=== PATIENT | male | born 1955 | race Hispanic/Latino ===

== ENCOUNTER 2017-12-31 11:13 | Outpatient (CLI) | payer OTHER | END 2017-12-31 11:14 | disposition home or self-care (01) | LOC: BICULT 11:13 | PROVIDERS: ATTEND Urology | DX: R31.29 Other microscopic hematuria (principal); N20.0 Calculus of kidney | CPT/HCPCS: 76770 ==

== ENCOUNTER 2018-01-13 14:56 | Outpatient (CLI) | payer OTHER | END 2018-01-13 14:57 | disposition home or self-care (01) | LOC: BICCT 14:56 | PROVIDERS: ATTEND Urology | DX: N20.0 Calculus of kidney (principal); K40.20 Bilateral inguinal hernia, without obstruction or gangrene, not specified as recurrent | CPT/HCPCS: 74176 ==

== ENCOUNTER 2018-04-18 08:37 | Outpatient (CLI) | payer BC ==
[2018-04-18 09:28] LABS: Estimated GFR-MDRD - POC Greater than 90
[2018-04-18] MEDS ORDERED: Gadobenate Dimeglumine 529 MG/1 ML (20ML VIAL) ONE (13:03)
== END 2018-04-18 08:38 | disposition home or self-care (01) ==
LOC: BICMRI 08:37
PROVIDERS: ATTEND Family Medicine
DX: R41.3 Other amnesia (principal); I67.82 Cerebral ischemia; I63.9 Cerebral infarction, unspecified
CPT/HCPCS: 70553; 82565; A9579

== ENCOUNTER 2018-11-25 20:10 | Emergency (ER) | payer OTHER, BC ==
[~2018-11-25 20:10] MED LIST: ISOVUE-370 76%-LOCM 1 ML ONE
[2018-11-25 20:56] LABS: #Eosinphils 0.1 thou/uL (0.0-0.7); #Lymphocytes 0.9 thou/uL (1.20-3.40); #Monocytes 0.5 thou/uL (0.11-0.59); #Neutrophils 5.1 thou/uL (1.40-6.50); %Basophils 0.4 % (0.0-1.0); %Eosinophils 1.4 % (0.0-10.0); %Lymphocytes 13.3 % (21.0-51.0); %Monocytes 7.4 % (0.0-10.0); %Neutrophils 77.5 % (42.0-75.0); Hemoglobin 12.7 g/dL (14.0-18.0); Mean Corpuscular HGB CONC 33.5 g/dL (32.0-36.0); Mean Corpuscular Hemoglobin 30.1 pg (27.0-31.0); Mean Corpuscular Volume 89.7 fL (78.0-98.0); Mean Platelet Volume 8.8 fL (7.4-10.4); Platelet Count 142 thou/uL (130-400); RBC Distribution Width 12.2 % (11.5-14.5); Red Blood Cell (RBC) Count 4.21 mill/uL (4.70-6.10); White Blood Cell (WBC) Count 6.5 thou/uL (4.8-10.8)
[2018-11-25 21:17] LABS: ALT (SGPT) 16 U/L (8-55); AST (SGOT) 17 U/L (5-34); Albumin 4.2 g/dL (3.4-4.8); Alkaline Phosphatase 102 U/L (40-150); Anion Gap 12 mmol/L (10-20); BUN (Urea Nitrogen) 16 mg/dL (8.4-25.7); Bilirubin, Total 0.4 mg/dL (0.2-1.2); Calc. Creatinine Clearance 0 mL/min (70-130); Carbon Dioxide 26 mmol/L (23-31); Chloride 102 mmol/L (98-107); Estimated GFR-MDRD Greater than 90; Globulin 2.8 g/dL (2.4-3.5); Glucose 130 mg/dL (80-115); Lipase 49 U/L (8-78); Potassium 3.8 mmol/L (3.5-5.1); Sodium 136 mmol/L (136-145)
[2018-11-25 21:38] LABS: Bilirubin Negative (Negative); Blood, Urine Large (Negative); Clarity CLEAR (Clear); Glucose, Urine (Dipstick) Negative (Negative); Leukocyte Negative (Negative); Nitrite Negative (Negative); Protein, Urine (Dipstick) Negative (Neg-Trace); Specific Gravity, Urine 1.019 (1.002-1.036); pH, Urine 5.5 (5.0-9.0)
[2018-11-25 21:41] LABS: Bacteria/HPF None Seen HPF (None Seen); Hyaline Casts/LPF 0-3 HYALINE CAST LPF (0-3 Hyaline); Squamous Epithelial 0-3 HPF (0-3); WBC/HPF 0-3 HPF (0-3)
--- NOTE | 2018-11-25 22:18 | CT ---
CONTRAST ENHANCED CT IMAGES ABDOMEN AND PELVIS: 11/25/18 HISTORY: Abdominal pain for three days. Contrast enhanced CT images of the abdomen and pelvis demonstrates extensive coronary artery calcific ations. There is a prosthetic aortic valve seen. The lung bases are unremarkable. No evidence of free intraperitoneal air seen. The liver and spleen are unremarkable. The gallbladder and pancreas are unremarkable. The adrenal gla nds and kidneys are unremarkable. No evidence of periaortic lymphadenopathy seen. No dilated loops of small bowel seen. A normal appendix is seen. No significant colonic obstruction seen. Evaluation of the gastrointestinal system is suboptimal due to the fact that oral contrast was not gi kelsi. No evidence of retroperitoneal lymphadenopathy seen. Left inguinal hernia is present. Multilevel lumb ar degenerative changes seen. No other obvious osseous lesion seen. IMPRESSION: Degenerative changes seen in the spine. No acute evidence of intra-abdominal or pelvic pathology seen . POS: [facility]
== END 2018-11-25 23:12 | disposition home or self-care (01) ==
LOC: ERS 20:10
DX: R10.31 Right lower quadrant pain (principal); I10 Essential (primary) hypertension; E11.9 Type 2 diabetes mellitus without complications; E78.5 Hyperlipidemia, unspecified
CPT/HCPCS: 36415; 74177; 80053; 81003; 81015; 83690; 85025; 93005; Q9966

== ENCOUNTER 2022-02-24 10:53 | Outpatient (CLI) | payer MEDICARE | END 2022-02-24 10:54 | disposition home or self-care (01) | LOC: DTY/OP 10:53 | PROVIDERS: ATTEND Student in an Organized Health Care Education/Training Program | DX: F01.51 Vascular dementia, unspecified severity, with behavioral disturbance (principal); R63.4 Abnormal weight loss; R63.8 Other symptoms and signs concerning food and fluid intake | CPT/HCPCS: 97802 ==

== ENCOUNTER 2022-03-31 14:00 | Inpatient (IN) | payer MEDICARE ==
[2022-03-31 15:05] LABS: #Lymphocytes 0.7 thou/uL (1.20-3.40); #Monocytes 0.5 thou/uL (0.11-0.59); %Basophils 0.1 % (0.0-1.0); %Eosinophils 0.2 % (0.0-10.0); %Lymphocytes 9.7 % (21.0-51.0); %Monocytes 6.6 % (0.0-10.0); %Neutrophils 83.4 % (42.0-75.0); Hemoglobin 14.2 g/dL (14.0-18.0); Mean Corpuscular HGB CONC 33.3 g/dL (32.0-36.0); Mean Corpuscular Hemoglobin 31.1 pg (27.0-31.0); Mean Corpuscular Volume 93.6 fL (78.0-98.0); Mean Platelet Volume 9.6 fL (7.4-10.4); Platelet Count 134 thou/uL (130-400); RBC Distribution Width 12.8 % (11.5-14.5); Red Blood Cell (RBC) Count 4.55 mill/uL (4.70-6.10); White Blood Cell (WBC) Count 7.2 thou/uL (4.8-10.8)
[2022-03-31 15:11] LABS: ALT (SGPT) 22 U/L (8-55); AST (SGOT) 26 U/L (5-34); Albumin 3.9 g/dL (3.4-4.8); Alkaline Phosphatase 73 U/L (40-110); Anion Gap 15 mmol/L (10-20); BUN (Urea Nitrogen) 10 mg/dL (8.4-25.7); Bilirubin, Total 0.4 mg/dL (0.2-1.2); Calc. Creatinine Clearance 0 mL/min (70-130); Calcium 8.8 mg/dL (7.8-10.44); Carbon Dioxide 25 mmol/L (23-31); Chloride 104 mmol/L (98-107); Estimated GFR 100; Glucose 127 mg/dL (80-115); Potassium 3.9 mmol/L (3.5-5.1); Protein, Total 6.9 g/dL (5.8-8.1); Sodium 140 mmol/L (136-145)
[2022-03-31 15:42] LABS: Magnesium 1.7 mg/dL (1.6-2.6)
[2022-03-31] MEDS ORDERED: Acetaminophen 500 MG TAB ONE (17:28)
[2022-03-31] MEDS ORDERED: Ondansetron ODT 4 MG TAB PO PRN (18:16)
[2022-03-31] MEDS ORDERED: Acetaminophen 325 MG TAB PO PRN (18:16)
[2022-03-31] MEDS ORDERED: Ondansetron PF 4 MG/2 ML Vial IVP PRN (18:16)
[2022-03-31] MEDS ORDERED: Lactated Ringer's 1,000 ML IV SCH (18:30)
[2022-03-31 19:48] LABS: Thyroid Stimulating Hormone 0.5949 uIU/mL (0.35-4.94)
[2022-03-31 19:57] LABS: SARS-CoV-2 NAA Rapid Test DETECTED (NotDetected)
[2022-03-31] MEDS: Lactated Ringer's 1,000 ML IV SCH (21:01)
[2022-03-31] MEDS: Famotidine 20 MG TAB PO SCH (21:02)
[2022-03-31 21:07] VITALS: BMI 23.2
[2022-04-01] MEDS ORDERED: cefTRIAXone\\ROCEPHIN 2 GM VIAL ONE (02:12)
[2022-04-01] MEDS: Lactated Ringer's 1,000 ML IV SCH ×3 (05:41→21:44)
[2022-04-01 07:17] LABS: ALT (SGPT) 162 U/L (8-55); AST (SGOT) 328 U/L (5-34); Albumin 3.4 g/dL (3.4-4.8); Alkaline Phosphatase 94 U/L (40-110); Anion Gap 18 mmol/L (10-20); BUN (Urea Nitrogen) 16 mg/dL (8.4-25.7); Bilirubin, Total 0.5 mg/dL (0.2-1.2); Calc. Creatinine Clearance 57 mL/min (70-130); Calcium 8.2 mg/dL (7.8-10.44); Carbon Dioxide 21 mmol/L (23-31); Chloride 106 mmol/L (98-107); Estimated GFR 79; Globulin 2.5 g/dL (2.4-3.5); Glucose 122 mg/dL (80-115); Protein, Total 5.9 g/dL (5.8-8.1); Sodium 142 mmol/L (136-145)
[2022-04-01] MEDS: Atorvastatin Calcium 40 MG TAB PO SCH (08:43)
[2022-04-01] MEDS: Metoprolol Tartrate 50 MG TAB PO SCH ×2 (08:43→21:43)
[2022-04-01] MEDS: Famotidine 20 MG TAB PO SCH ×2 (08:43→21:43)
[2022-04-01] MEDS: metFORMIN 500 MG TAB PO SCH ×2 (08:43→17:34)
[2022-04-01] MEDS: Aspirin 325 mg Enteric Coated Tablet PO SCH (08:43)
[2022-04-01 08:49] LABS: Hemoglobin 13.2 g/dL (14.0-18.0); Mean Corpuscular HGB CONC 32.7 g/dL (32.0-36.0); Mean Corpuscular Hemoglobin 31.3 pg (27.0-31.0); Mean Corpuscular Volume 95.8 fL (78.0-98.0); Mean Platelet Volume 10.3 fL (7.4-10.4); Platelet Count 77 thou/uL (130-400); RBC Distribution Width 12.9 % (11.5-14.5); Red Blood Cell (RBC) Count 4.22 mill/uL (4.70-6.10); White Blood Cell (WBC) Count 12.2 thou/uL (4.8-10.8)
[2022-04-01 08:50] LABS: Band 48 % (5-11); Lymphocytes 3 % (21-51); MDiff Complete? YES; Metamyelocyte 2 % (0-0); Monocytes 1 % (0-10); Neutrophil 46 % (42-75); Platelet Morphology Comment Appears Decreased; Polychromasia SLIGHT = 2-3 cells (100X) (0-2/hpf)
[2022-04-01] MEDS ORDERED: Enoxaparin Sodium 40 MG/0.4 ML SYRINGE SC SCH (09:00)
[2022-04-01] MEDS ORDERED: Vancomycin 1 GM in Premix Bag 1 BAG IVPB SCH (09:00)
[2022-04-01] MEDS ORDERED: Dexamethasone 6 MG in Sodium Chloride 0.9% 50 ML IVPB SCH (09:03)
[2022-04-01 09:45] LABS: ALT (SGPT) 155 U/L (8-55); AST (SGOT) 282 U/L (5-34); Albumin 3.3 g/dL (3.4-4.8); Alkaline Phosphatase 93 U/L (40-110); Anion Gap 17 mmol/L (10-20); BUN (Urea Nitrogen) 16 mg/dL (8.4-25.7); Bilirubin, Total 0.5 mg/dL (0.2-1.2); Calc. Creatinine Clearance 60 mL/min (70-130); Calcium 8.2 mg/dL (7.8-10.44); Carbon Dioxide 21 mmol/L (23-31); Chloride 105 mmol/L (98-107); Estimated GFR 85; Globulin 2.6 g/dL (2.4-3.5); Glucose 109 mg/dL (80-115); Potassium 3.2 mmol/L (3.5-5.1); Protein, Total 5.9 g/dL (5.8-8.1); Sodium 140 mmol/L (136-145)
[2022-04-01] MEDS ORDERED: Dexamethasone 4 mg/ml Vial SLOW IVP SCH (10:00)
[2022-04-01 10:13] LABS: Band 36 % (5-11); Hemoglobin 13.2 g/dL (14.0-18.0); Lymphocytes 2 % (21-51); MDiff Complete? YES; Mean Corpuscular HGB CONC 32.3 g/dL (32.0-36.0); Mean Corpuscular Volume 95.9 fL (78.0-98.0); Mean Platelet Volume 10.1 fL (7.4-10.4); Metamyelocyte 9 % (0-0); Monocytes 5 % (0-10); Neutrophil 48 % (42-75); Platelet Count 75 thou/uL (130-400); Platelet Morphology Comment Appears Decreased; Polychromasia SLIGHT = 2-3 cells (100X) (0-2/hpf); RBC Distribution Width 12.8 % (11.5-14.5); Red Blood Cell (RBC) Count 4.25 mill/uL (4.70-6.10); Vacuoles SLIGHT; White Blood Cell (WBC) Count 15.8 thou/uL (4.8-10.8)
[2022-04-01] MEDS ORDERED: Potassium Chloride 20 MEQ in Premix Bag 1 BAG IVPB SCH (14:00)
[2022-04-01] MEDS ORDERED: Vancomycin HCl 750 MG in Sodium Chloride 0.9% 250 ML 250 ML IVPB SCH (15:00)
[2022-04-01 18:09] LABS: Bilirubin Negative (Negative); Blood, Urine 3+ (Negative); Clarity Turbid (Clear); Glucose, Urine (Dipstick) Normal (Negative); Ketone, Urine Negative (Negative); Leukocyte Negative Leu/uL (Negative); Nitrite Negative (Negative); Protein, Urine (Dipstick) 10 mg/dL (Neg-Trace); Specific Gravity, Urine 1.011 (1.002-1.036); Squamous Epithelial 0-3 HPF (0-3); Urobilinogen Normal mg/dL (Less than 2); WBC/HPF 0-3 HPF (0-3)
[2022-04-01 18:10] LABS: Bacteria/HPF 1+ HPF (None Seen); Urine Culture Reflex Yes Yes
[2022-04-01 18:23] LABS: Strep pneumo Urine Ag NEGATIVE (NEGATIVE)
[2022-04-01] MEDS ORDERED: Donepezil HCl 10 MG TAB PO SCH (21:00)
[2022-04-02] MEDS ORDERED: cefTRIAXone\\ROCEPHIN 2 GM in Sodium Chloride 0.9% 100 ML IVPB SCH (02:00)
[2022-04-02 06:30] LABS: Band 23 % (5-11); Hemoglobin 11.4 g/dL (14.0-18.0); Lymphocytes 7 % (21-51); MDiff Complete? YES; Mean Corpuscular HGB CONC 32.8 g/dL (32.0-36.0); Mean Corpuscular Volume 94.5 fL (78.0-98.0); Mean Platelet Volume 11.1 fL (7.4-10.4); Metamyelocyte 5 % (0-0); Monocytes 3 % (0-10); Neutrophil 62 % (42-75); Platelet Count 75 thou/uL (130-400); Platelet Morphology Comment Appears Adequate; RBC Distribution Width 12.8 % (11.5-14.5); RBC Morphology Normal; Red Blood Cell (RBC) Count 3.67 mill/uL (4.70-6.10); White Blood Cell (WBC) Count 20.1 thou/uL (4.8-10.8)
[2022-04-02 06:51] LABS: ALT (SGPT) 93 U/L (8-55); AST (SGOT) 90 U/L (5-34); Alkaline Phosphatase 74 U/L (40-110); Anion Gap 14 mmol/L (10-20); BUN (Urea Nitrogen) 15 mg/dL (8.4-25.7); Bilirubin, Total 0.9 mg/dL (0.2-1.2); Calc. Creatinine Clearance 86 mL/min (70-130); Calcium 8.1 mg/dL (7.8-10.44); Carbon Dioxide 20 mmol/L (23-31); Chloride 109 mmol/L (98-107); Estimated GFR 102; Globulin 2.3 g/dL (2.4-3.5); Glucose 90 mg/dL (80-115); Potassium 3.7 mmol/L (3.5-5.1); Protein, Total 5.3 g/dL (5.8-8.1); Sodium 139 mmol/L (136-145)
[2022-04-02] MEDS ORDERED: Dexamethasone 4 mg/ml Vial SLOW IVP SCH (09:00)
[2022-04-02] MEDS: Atorvastatin Calcium 40 MG TAB PO SCH (09:34)
[2022-04-02] MEDS: Famotidine 20 MG TAB PO SCH (09:34)
[2022-04-02] MEDS: metFORMIN 500 MG TAB PO SCH ×2 (09:34→17:24)
[2022-04-02] MEDS: Aspirin 325 mg Enteric Coated Tablet PO SCH (09:34)
[2022-04-02] MEDS: Lactated Ringer's 1,000 ML IV SCH (09:36)
[2022-04-02] MEDS: Metoprolol Tartrate 50 MG TAB PO SCH (09:38)
[2022-04-02 15:11] VITALS: TEMP 98
[2022-04-02 18:28] VITALS: BP 138/86
== END 2022-04-02 19:10 | disposition hospice, home (50) | DRG 177 ==
LOC: ERS 14:00 → OBSVTOIN 17:17 → T4-A 17:17
PROVIDERS: ADMIT Student in an Organized Health Care Education/Training Program; ATTEND Student in an Organized Health Care Education/Training Program
PROC: 8E0ZXY6 Isolation (ICD-10-PCS; principal; 2022-03-31)
DX: U07.1 COVID-19 (principal); G04.90 Encephalitis and encephalomyelitis, unspecified; J96.01 Acute respiratory failure with hypoxia; I69.354 Hemiplegia and hemiparesis following cerebral infarction affecting left non-dominant side; R64 Cachexia; E46 Unspecified protein-calorie malnutrition; N39.0 Urinary tract infection, site not specified; Z51.5 Encounter for palliative care; Z66 Do not resuscitate; E87.6 Hypokalemia; R74.01 Elevation of levels of liver transaminase levels; E86.0 Dehydration; F01.50 Vascular dementia, unspecified severity, without behavioral disturbance, psychotic disturbance, mood disturbance, and anxiety; Z79.82 Long term (current) use of aspirin; Z79.899 Other long term (current) drug therapy; Z79.84 Long term (current) use of oral hypoglycemic drugs; Z95.2 Presence of prosthetic heart valve; Z87.891 Personal history of nicotine dependence; Z68.23 Body mass index [BMI] 23.0-23.9, adult; Z95.1 Presence of aortocoronary bypass graft
CPT/HCPCS: 36415; 36416; 70450; 71045; 80053; 81001; 82140; 82607; 83735; 84145; 84443; 84484; 85025; 85060; 87040; 87077; 87086; 87149; 87449; 93005; J0696; J1100; J1650; J3480; J3490; J7120

== ENCOUNTER 2023-07-09 19:25 | Inpatient (IN) | payer MEDICARE ==
[2023-07-09 20:14] LABS: #Monocytes 1.1 thou/uL (0.11-0.59); #Neutrophils 17.6 thou/uL (1.40-6.50); %Basophils 0.1 % (0.0-1.0); %Lymphocytes 4.3 % (21.0-51.0); %Monocytes 5.4 % (0.0-10.0); %Neutrophils 89.7 % (42.0-75.0); Hematocrit 46.2 % (42.0-52.0); Hemoglobin 14.9 g/dL (14.0-18.0); Mean Corpuscular HGB CONC 32.3 g/dL (32.0-36.0); Mean Corpuscular Hemoglobin 30.6 pg (27.0-31.0); Mean Corpuscular Volume 94.9 fl (78.0-98.0); Mean Platelet Volume 10.3 fL (7.4-10.4); Platelet Count 397 10x3/uL (130-400); RBC Distribution Width 13.6 % (11.5-14.5); Red Blood Cell (RBC) Count 4.87 mill/uL (4.70-6.10); White Blood Cell (WBC) Count 19.6 10x3/uL (4.8-10.8)
[2023-07-09 20:40] LABS: ALT (SGPT) 95 U/L (8-55); AST (SGOT) 43 U/L (5-34); Albumin 4.1 g/dL (3.4-4.8); Alkaline Phosphatase 86 U/L (40-110); Anion Gap 20 mmol/L (10-20); BUN (Urea Nitrogen) 24 mg/dL (8.4-25.7); Bilirubin, Total 1.3 mg/dL (0.2-1.2); Calc. Creatinine Clearance 0 mL/min (70-130); Calcium 9.6 mg/dL (7.8-10.44); Carbon Dioxide 22 mmol/L (23-31); Chloride 109 mmol/L (98-107); Estimated GFR 97; Globulin 3.5 g/dL (2.4-3.5); Glucose 196 mg/dL (80-115); Lipase Less than 4 U/L (8-78); Potassium 3.8 mmol/L (3.5-5.1); Protein, Total 7.6 g/dL (5.8-8.1); Sodium 147 mmol/L (136-145)
[2023-07-09] MEDS ORDERED: Cefepime 2 GM VIAL ONE (21:05)
[2023-07-09] MEDS ORDERED: Sodium Chloride 0.9% 100 ML ONE (21:05)
[2023-07-09] MEDS ORDERED: Vancomycin 1 GM/200 ML (FROZEN) BAG ONE (22:41)
[2023-07-09 23:31] LABS: Lactic Acid 3.1 mmol/L (0.5-2.2)
[2023-07-09 23:59] LABS: Bacteria/HPF 4+ HPF (None Seen); Bilirubin Negative (Negative); Blood, Urine 2+ (Negative); CAUTI Indications for Culture Alt mental st,lethar; Clarity Clear (Clear); Glucose, Urine (Dipstick) Normal (Negative); Ketone, Urine 10 mg/dL (Negative); Leukocyte 75 Leu/uL (Negative); Mucous/LPF Rare LPF (<2+); Nitrite 2+ (Negative); Protein, Urine (Dipstick) 30 mg/dL (Neg-Trace); Specific Gravity, Urine 1.023 (1.002-1.036); Squamous Epithelial 0-3 HPF (0-3); Urobilinogen 3 mg/dL (Less than 2)
[2023-07-10 00:07] LABS: Urine Culture Reflex No No
[2023-07-10 00:54] VITALS: BMI 15.0
[2023-07-10] MEDS ORDERED: Sodium Chloride 0.9% 1,000 ML IV SCH (02:15)
[2023-07-10 05:16] LABS: Lactic Acid 1.8 mmol/L (0.5-2.2)
[2023-07-10 05:23] LABS: Troponin I 0.026 ng/mL (< 0.028)
[2023-07-10] MEDS: Lactated Ringer's 1,000 ML IV SCH (06:05)
[2023-07-10 07:35] LABS: #Monocytes 1.1 thou/uL (0.11-0.59); #Neutrophils 18.8 thou/uL (1.40-6.50); %Basophils 0.1 % (0.0-1.0); %Lymphocytes 5.5 % (21.0-51.0); %Monocytes 5.1 % (0.0-10.0); %Neutrophils 88.8 % (42.0-75.0); Hematocrit 39.9 % (42.0-52.0); Hemoglobin 13.1 g/dL (14.0-18.0); Mean Corpuscular HGB CONC 32.8 g/dL (32.0-36.0); Mean Corpuscular Volume 94.5 fl (78.0-98.0); Mean Platelet Volume 11.2 fL (7.4-10.4); Platelet Count 405 10x3/uL (130-400); RBC Distribution Width 13.7 % (11.5-14.5); Red Blood Cell (RBC) Count 4.22 mill/uL (4.70-6.10); White Blood Cell (WBC) Count 21.2 10x3/uL (4.8-10.8)
[2023-07-10 08:37] LABS: ALT (SGPT) 74 U/L (8-55); AST (SGOT) 28 U/L (5-34); Albumin 3.7 g/dL (3.4-4.8); Alkaline Phosphatase 73 U/L (40-110); Anion Gap 18 mmol/L (10-20); BUN (Urea Nitrogen) 22 mg/dL (8.4-25.7); Calc. Creatinine Clearance 65 mL/min (70-130); Calcium 8.9 mg/dL (7.8-10.44); Carbon Dioxide 19 mmol/L (23-31); Chloride 114 mmol/L (98-107); Estimated GFR 104; Globulin 3.1 g/dL (2.4-3.5); Glucose 160 mg/dL (80-115); Magnesium 2.1 mg/dL (1.6-2.6); Phosphorus 2.6 mg/dL (2.3-4.7); Potassium 3.4 mmol/L (3.5-5.1); Protein, Total 6.8 g/dL (5.8-8.1); Sodium 148 mmol/L (136-145)
[2023-07-10] MEDS: Pantoprazole 40 MG VIAL IVP SCH (09:09)
[2023-07-10] MEDS ORDERED: Morphine 2 MG/ML VIAL SLOW IVP PRN (10:29)
[2023-07-10] MEDS ORDERED: Iopamidol-370 76% 500 ML MDV (1 ML CHARGE) ONE (10:42)
[2023-07-10 12:27] LABS: HBSAB Concentration Less than 8.00 mIU/mL; HBSAg Index 0.29 S/CO (0-0.99); Hep B Surf AB Non-Reactive (NonReactive); Hep B Surf Ag Non-Reactive S/CO (NonReactive); Hep C IgG Ab Non-Reactive S/CO (NonReactive); Hep C Index 0.07 S/CO (0-0.79)
[2023-07-10] MEDS ORDERED: Potassium Chloride 20 MEQ TAB PO SCH ×2 (16:30)
[2023-07-10] MEDS: cefTRIAXone\\ROCEPHIN 1 GM in Sodium Chloride 0.9% 100 ML IVPB SCH (20:11)
[2023-07-10] MEDS ORDERED: Polyethylene Glycol 3350 17 GM Packet PO SCH (20:15)
[2023-07-10] MEDS ORDERED: Bisacodyl 10 MG SUPP PR SCH (20:15)
[2023-07-10] MEDS ORDERED: Senokot S 8.6-50 MG TAB PO PRN (20:40)
[2023-07-10] MEDS ORDERED: Benzonatate 100 MG CAP PO PRN (20:40)
[2023-07-10] MEDS: Atorvastatin Calcium 40 MG TAB PO SCH (21:47)
[2023-07-10] MEDS: Metoprolol Tartrate 25 MG TAB PO SCH (21:48)
[2023-07-11] MEDS: Lactated Ringer's 1,000 ML IV SCH ×2 (05:05→20:33)
[2023-07-11 08:17] LABS: ALT (SGPT) 43 U/L (8-55); AST (SGOT) 20 U/L (5-34); Alkaline Phosphatase 61 U/L (40-110); Anion Gap 14 mmol/L (10-20); BUN (Urea Nitrogen) 13 mg/dL (8.4-25.7); Bilirubin, Total 0.6 mg/dL (0.2-1.2); Calc. Creatinine Clearance 81 mL/min (70-130); Calcium 8.4 mg/dL (7.8-10.44); Carbon Dioxide 22 mmol/L (23-31); Chloride 111 mmol/L (98-107); Estimated GFR 111; Globulin 3.1 g/dL (2.4-3.5); Glucose 87 mg/dL (80-115); Potassium 3.8 mmol/L (3.5-5.1); Protein, Total 6.1 g/dL (5.8-8.1); Sodium 143 mmol/L (136-145)
[2023-07-11] MEDS: Metoprolol Tartrate 25 MG TAB PO SCH ×2 (08:35→20:30)
[2023-07-11] MEDS: Tamsulosin HCl 0.4 MG CAP PO SCH (08:35)
[2023-07-11] MEDS: Aspirin 325 mg Enteric Coated Tablet PO SCH (08:35)
[2023-07-11] MEDS: Pantoprazole 40 MG VIAL IVP SCH (08:36)
[2023-07-11 09:40] LABS: #Monocytes 0.9 thou/uL (0.11-0.59); #Neutrophils 13.9 thou/uL (1.40-6.50); %Basophils 0.1 % (0.0-1.0); %Eosinophils 0.1 % (0.0-10.0); %Lymphocytes 7.6 % (21.0-51.0); %Monocytes 5.8 % (0.0-10.0); Hematocrit 36.2 % (42.0-52.0); Hemoglobin 11.9 g/dL (14.0-18.0); Mean Corpuscular HGB CONC 32.9 g/dL (32.0-36.0); Mean Corpuscular Hemoglobin 30.5 pg (27.0-31.0); Mean Corpuscular Volume 92.8 fl (78.0-98.0); Mean Platelet Volume 10.3 fL (7.4-10.4); Platelet Count 281 10x3/uL (130-400); RBC Distribution Width 13.7 % (11.5-14.5); White Blood Cell (WBC) Count 16.1 10x3/uL (4.8-10.8)
[2023-07-11] MEDS ORDERED: Polyethylene Glycol 3350 17 GM Packet PO PRN (09:58)
[2023-07-11] MEDS ORDERED: Bisacodyl 10 MG SUPP PR SCH (10:00)
[2023-07-11] MEDS: cefTRIAXone\\ROCEPHIN 1 GM in Sodium Chloride 0.9% 100 ML IVPB SCH (20:30)
[2023-07-11] MEDS: Atorvastatin Calcium 40 MG TAB PO SCH (20:30)
[2023-07-12 04:42] LABS: #Eosinphils 0.1 thou/uL (0.0-0.7); #Monocytes 0.9 thou/uL (0.11-0.59); #Neutrophils 11.1 thou/uL (1.40-6.50); %Basophils 0.1 % (0.0-1.0); %Eosinophils 0.5 % (0.0-10.0); %Lymphocytes 10.9 % (21.0-51.0); %Monocytes 6.3 % (0.0-10.0); %Neutrophils 81.8 % (42.0-75.0); Hematocrit 37.3 % (42.0-52.0); Hemoglobin 12.1 g/dL (14.0-18.0); Mean Corpuscular HGB CONC 32.4 g/dL (32.0-36.0); Mean Corpuscular Hemoglobin 29.9 pg (27.0-31.0); Mean Corpuscular Volume 92.1 fl (78.0-98.0); Mean Platelet Volume 11.4 fL (7.4-10.4); Platelet Count 274 10x3/uL (130-400); RBC Distribution Width 13.5 % (11.5-14.5); Red Blood Cell (RBC) Count 4.05 mill/uL (4.70-6.10); White Blood Cell (WBC) Count 13.5 10x3/uL (4.8-10.8)
[2023-07-12 05:04] LABS: ALT (SGPT) 37 U/L (8-55); AST (SGOT) 17 U/L (5-34); Albumin 2.9 g/dL (3.4-4.8); Alkaline Phosphatase 62 U/L (40-110); Anion Gap 12 mmol/L (10-20); BUN (Urea Nitrogen) 9 mg/dL (8.4-25.7); Bilirubin, Total 0.7 mg/dL (0.2-1.2); Calc. Creatinine Clearance 86 mL/min (70-130); Calcium 8.1 mg/dL (7.8-10.44); Carbon Dioxide 25 mmol/L (23-31); Chloride 107 mmol/L (98-107); Estimated GFR 113; Globulin 2.8 g/dL (2.4-3.5); Glucose 106 mg/dL (80-115); Potassium 3.6 mmol/L (3.5-5.1); Protein, Total 5.7 g/dL (5.8-8.1); Sodium 140 mmol/L (136-145)
[2023-07-12] MEDS: Tamsulosin HCl 0.4 MG CAP PO SCH (09:20)
[2023-07-12] MEDS: Metoprolol Tartrate 25 MG TAB PO SCH ×2 (09:20→20:03)
[2023-07-12] MEDS: Pantoprazole 40 MG VIAL IVP SCH (09:20)
[2023-07-12] MEDS: Aspirin 325 mg Enteric Coated Tablet PO SCH (09:20)
[2023-07-12] MEDS: Lactated Ringer's 1,000 ML IV SCH (17:28)
[2023-07-12] MEDS: cefTRIAXone\\ROCEPHIN 1 GM in Sodium Chloride 0.9% 100 ML IVPB SCH (20:03)
[2023-07-12] MEDS: Atorvastatin Calcium 40 MG TAB PO SCH (20:03)
[2023-07-13 05:40] LABS: #Eosinphils 0.2 thou/uL (0.0-0.7); #Monocytes 0.6 thou/uL (0.11-0.59); %Basophils 0.1 % (0.0-1.0); %Lymphocytes 18.2 % (21.0-51.0); %Monocytes 6.7 % (0.0-10.0); %Neutrophils 72.5 % (42.0-75.0); Hematocrit 35.9 % (42.0-52.0); Hemoglobin 11.5 g/dL (14.0-18.0); Mean Corpuscular Hemoglobin 30.1 pg (27.0-31.0); Mean Platelet Volume 10.6 fL (7.4-10.4); Platelet Count 261 10x3/uL (130-400); RBC Distribution Width 13.6 % (11.5-14.5); Red Blood Cell (RBC) Count 3.82 mill/uL (4.70-6.10); White Blood Cell (WBC) Count 8.3 10x3/uL (4.8-10.8)
[2023-07-13 06:12] LABS: ALT (SGPT) 24 U/L (8-55); AST (SGOT) 13 U/L (5-34); Albumin 2.9 g/dL (3.4-4.8); Alkaline Phosphatase 59 U/L (40-110); Anion Gap 10 mmol/L (10-20); BUN (Urea Nitrogen) 11 mg/dL (8.4-25.7); Bilirubin, Total 0.4 mg/dL (0.2-1.2); Calc. Creatinine Clearance 88 mL/min (70-130); Calcium 8.1 mg/dL (7.8-10.44); Carbon Dioxide 25 mmol/L (23-31); Chloride 107 mmol/L (98-107); Estimated GFR 114; Globulin 2.6 g/dL (2.4-3.5); Glucose 88 mg/dL (80-115); Potassium 3.9 mmol/L (3.5-5.1); Protein, Total 5.5 g/dL (5.8-8.1); Sodium 138 mmol/L (136-145)
[2023-07-13] MEDS: Tamsulosin HCl 0.4 MG CAP PO SCH (09:15)
[2023-07-13] MEDS: Aspirin 325 mg Enteric Coated Tablet PO SCH (09:15)
[2023-07-13] MEDS: Pantoprazole 40 MG VIAL IVP SCH (09:15)
[2023-07-13] MEDS: Metoprolol Tartrate 25 MG TAB PO SCH (09:15)
[2023-07-13 09:24] VITALS: BP 137/86; TEMP 97.5
[2023-07-13] MEDS: Lactated Ringer's 1,000 ML IV SCH (14:58)
== END 2023-07-13 18:22 | disposition home or self-care (01) | DRG 871 ==
LOC: ERS 19:25 → T4-B 22:59
PROVIDERS: ADMIT Emergency Medicine; ATTEND Emergency Medicine
DX: A41.9 Sepsis, unspecified organism (principal); E43 Unspecified severe protein-calorie malnutrition; R64 Cachexia; Z68.1 Body mass index [BMI] 19.9 or less, adult; R17 Unspecified jaundice; N39.0 Urinary tract infection, site not specified; F01.50 Vascular dementia, unspecified severity, without behavioral disturbance, psychotic disturbance, mood disturbance, and anxiety; Z66 Do not resuscitate; E86.0 Dehydration; Z51.5 Encounter for palliative care; E11.9 Type 2 diabetes mellitus without complications; E78.5 Hyperlipidemia, unspecified; I10 Essential (primary) hypertension; Z95.1 Presence of aortocoronary bypass graft; Z87.891 Personal history of nicotine dependence; I25.10 Atherosclerotic heart disease of native coronary artery without angina pectoris; Z79.82 Long term (current) use of aspirin; Z79.899 Other long term (current) drug therapy; N40.0 Benign prostatic hyperplasia without lower urinary tract symptoms; K52.89 Other specified noninfective gastroenteritis and colitis
CPT/HCPCS: 36415; 36416; 70450; 71045; 74177; 80053; 81001; 83605; 83690; 83735; 84100; 84145; 84443; 84484; 85025; 86706; 86803; 87040; 87086; 87340; 93005; 96361; 96365; 96367; 97139; C9113; J0692; J0696; J1650; J2272; J3370-JW; J3490; J7050; J7120; Q9967